=== PATIENT | male | born 1965 | race Caucasian/White ===

== ENCOUNTER → 2024-04-06 10:27 | Outpatient (REF) | payer MEDICARE, SELFPAY | LOC: RAD 10:27 | PROVIDERS: ATTENDING PHYSICIAN Family Medicine | DX: E78.5 Hyperlipidemia, unspecified (principal) | CPT/HCPCS: 93005 ==

== ENCOUNTER 2024-12-21 16:09 | Emergency (ER) | payer MEDICARE, OTHER, SELFPAY ==
[2024-12-21 16:12] VITALS: BP 130/71
--- NOTE | 2024-12-21 17:55 | ED.GENMED ---
History of Present Illness
General
Chief Complaint: Male Genito-Urinary Symptoms
Source: patient
Exam Limitations: none
Time Seen by Provider: 12/21/24 17:54
Nursing documentation reviewed up to this point in time: agreed with
History of Present Illness
History of Present Illness:
59-year-old male with history of bipolar, schizophrenia, BPH, GERD, HLD presents for scrotal swelling presents from [facility] for Left scrotal swelling.
Spoke with NATE Radford who states pt became resident Mar 2024 and was noted to have some swelling there but it seems to have gotten progressively worse.
Pt denies pain, states it's been like that for a while, denies trouble urinating, denies abd pain.
Past History
Past History
ED Past Medical History: Psychiatric (Bipolar, Schizophrenia); Negative Asthma, HTN, Hypercholesterolemia or NIDDM
ED Past Surgical History: None
Social History
Tobacco: Smoker
Alcohol: None
Personal: Single
Living: other ([facility])
Review of Systems
Review of Systems
Allergies reviewed?: Yes
All Other Systems: ROS reviewed and negative except as documented in HPI and ROS
ABD/GI: Denies abdominal pain
: Reports other (swollen left testicle); Denies dysuria, frequency, incontinence, difficulty voiding or urgency
Phy Exam
Physical Exam
Physical Exam:
GENERAL: No acute distress. A&Ox3.
CONSTITUTIONAL: Afebrile.
EYES: clear, conjunctivae normal
ENMT: moist mucus membranes
RESPIRATORY: Regular respirations, nonlabored, lungs clear.
CARDIOVASCULAR: Regular rate and rhythm, no murmurs, no rubs.
GI: Soft, nontender, normal BS
: Left scrotal swelling, soft, non tender, no erythema or warmth
MUSCULOSKELETAL: Moves with ease. Well perfused. No edema
SKIN: Warm, dry, pink
PSYCH: Normal mood and affect. Well kept, interactive and appropriate
NEUROLOGIC: Awake, alert and oriented. No focal neurological deficits
Course
Orders/Labs/Results
Orders:
Orders
12/21/24 16:18
Scrotum US [US Scrotum] Urgent
Comment:
Reason For Exam: swollen testicles
Vital Signs
Initial and Last Documented VS:
Initial Vital Signs
Temp Pulse Resp BP Pulse Ox
98.3 F 81 20 130/71 100
12/21/24 16:12 12/21/24 16:12 12/21/24 16:12 12/21/24 16:12 12/21/24 16:12
Last Documented Vital Signs
Temp Pulse Resp BP Pulse Ox
98.3 F 77 16 123/73 99
12/21/24 16:12 12/21/24 18:18 12/21/24 18:18 12/21/24 18:08 12/21/24 18:08
MDM/Problems Addressed
Differential Diagnosis Includes:
Varicocele, hydrocele, mass
MDM/Problems Addressed:
59-year-old male with history of bipolar, schizophrenia, BPH, GERD, HLD presents for scrotal swelling presents from [facility] for Left scrotal swelling.
Spoke with NATE Radford who states pt became resident Mar 2024 and was noted to have some swelling there but it seems to have gotten progressively worse.
Pt denies pain, states it's been like that for a while, denies trouble urinating, denies abd pain.
US showing moderate hydrocele and small varicocele left testicle
Nothing to do on urgent basis, pt is comfortable, plan: f/u with Urology
Discharge instructions reviewed with Malina at [facility]
*Pulse Oximetry
SaO2: 100
Oxygen Mode of Delivery: Room air
Patient hypoxic: not evaluated
*Critical Care Note
Total Time (30-74mins, 75-104mins- exclusive of procedures): Not Applicable
ED Attending Note
-
Portions of this chart may have been created with voice recognition software.� Occasional wrong word or��sound alike� substitutions may have occurred due to the inherent limitations of voice recognition software.
Discharge Plan
Departure
Patient Disposition: Home (Routine Discharge)
Date of Disposition: 12/21/24
Time of Disposition: 18:19
Patient with high blood pressure during this ER visit?: No
Condition: Good
Discharge Problem:
Hydrocele, left, Left varicocele
Instructions: Hydrocele/Varicocele (DC)
Prescriptions:
No Action
clozapine 100 MG tablet
100 mg PO HS
clonazepam 1 MG tablet
1 mg PO BID
hydroxyzine HCl 25 MG tablet
25 mg PO [id number] PRN (Reason: ?)
melatonin 5 MG tablet
5 mg PO HS
docusate sodium [Stool Softener] 100 MG tablet
100 mg PO BID
sennosides [senna] 8.6 MG capsule
8.6 mg PO HS
Referrals:
Alex Viramontes MD [Active, Urology] - Next open appointment
Activity Restrictions/Additional Instructions:
Brayden has a hydrocele and a varicocele in the left testicle. This is not anything that needs to be emergently addressed.
He seems very comfortable. Call and make an appointment with the urologist for further evaluation
Interventions
Interventions:
*Risk Screen - Suicide Last Done: 12/21/24 16:12
*General Assessment Last Done: 12/21/24 16:12
*Neglect/Abuse Screening Last Done: 12/21/24 18:06
*ED- Fall Risk Assessment Last Done: 12/21/24 18:06
*ED COVID-19 Vaccine History Last Done: 12/21/24 18:06
*Nursing Disposition Last Done: 12/21/24 18:23
ED-Male Genitourinary Assessment Last Done: 12/21/24 18:06
Discharge Date and Time
Discharge Date/Time: 12/21/24 18:25
Print Language: WALLISIAN
[2024-12-21 18:08] VITALS: BP 123/73
== END 2024-12-21 18:25 | disposition home or self-care (01) ==
LOC: EMR 16:09
PROVIDERS: EMERGENCY PHYSICIAN Emergency Medicine; FAMILY PHYSICIAN Family Medicine
DX: N43.3 Hydrocele, unspecified (principal); I86.1 Scrotal varices; E78.5 Hyperlipidemia, unspecified
CPT/HCPCS: 99284; 76870; 93976